=== PATIENT | male | born 1975 | race Caucasian/White ===

== ENCOUNTER 2022-08-14 08:17 | Emergency (ER) | payer OTHER ==
[~2022-08-14] VITALS: Ht 172.7 cm; Wt 73.0 kg
[2022-08-14] MEDS ORDERED: PEPCID AC20 MG PO (13:58)
[2022-08-14] MEDS ORDERED: CIPRO500 MG PO (13:58)
[2022-08-14] MEDS ORDERED: LEVSIN/SL0.125 MG SL (13:58)
== END 2022-08-14 14:04 | disposition home or self-care (01) ==
LOC: ER 08:17
DX: R10.84 Generalized abdominal pain (principal)

== ENCOUNTER 2024-11-14 20:56 | Emergency (ER) | payer OTHER ==
[~2024-11-14] VITALS: Ht 170.2 cm; Wt 81.6 kg
[~2024-11-14 20:56] MED LIST: CIPRO500 MG PO; LEVSIN/SL0.125 MG SL; PEPCID AC20 MG PO
[2024-11-14 21:17] VITALS: BP 121/73; O2SAT 99
[2024-11-14] MEDS ORDERED: RINGERS SOLUTION,LACTATED 1,000 ML IV SCH (21:45)
[2024-11-14] MEDS ORDERED: FAMOTIDINE/PF 20 MG/2 ML VIAL IV STA (21:45)
[2024-11-14] MEDS ORDERED: FAMOTIDINE/PF 20 MG/2 ML VIAL ONE (21:50)
[2024-11-14 22:13] LABS: BASO % 0.4 % (0.1-1.2); EOS # 0.20 (0.04-0.54); EOS % 1.2 % (0.7-7.0); LYMPH # 2.70 (1.18-3.74); LYMPH % 16.4 % (19.3-53.1); MEAN PLATELET VOLUME 8.40 fl (9.4-12.4); MONO # 1.65 (0.24-0.82); MONO % 10.0 % (4.7-12.5); NEUT # 11.80 (1.56-6.13); NEUT % 71.5 % (34.0-71.1); RED CELL DISTRIBUTION WIDTH 12.2 % (11.6-14.4)
[2024-11-14 22:32] LABS: INR 0.98
[2024-11-14 22:42] LABS: ALT/SGPT 43.0 U/L (12-78); AST/SGOT 48.0 U/L (15-37); BILIRUBIN TOTAL 0.62 mg/dL (0.3-1.2); BILIRUBIN,CONJUGATED 0.34 mg/dL (0.0-0.2); BUN CREA RATIO 18.0 (7.0-25.0); CREATININE SERUM 0.88 mg/dL (0.70-1.30); GFR 92.43; GLOBULINA 3.8 G/DL (2.4-3.5); GLUCOSE FASTING 114.0 mg/dL (65-100); LDH 150.0 U/L (87-241); OSMOLALITY SERUM 281.0 MOSM/KG (275-295)
[2024-11-14] MEDS ORDERED: MORPHINE SULFATE 2 MG/ML SYRINGE IV STA (23:35)
== END 2024-11-15 03:07 | disposition home or self-care (01) ==
LOC: ER 20:56
PROVIDERS: Physician Assistant Medical
DX: K29.00 Acute gastritis without bleeding (principal)
CPT/HCPCS: 74181